=== PATIENT | female | born 1955 | race Caucasian/White ===

== ENCOUNTER 2017-10-24 09:28 | Emergency (ER) | payer OTHER ==
[~2017-10-24] VITALS: Ht 165.1 cm; Wt 81.6 kg
[2017-10-24] MEDS ORDERED: ATORVASTATIN CA10 M1 PO (09:36)
[2017-10-24] MEDS ORDERED: SYNTHROID75 MCG PO (09:36)
[2017-10-24] MEDS ORDERED: TRAMADOL HCL50 M1 PO (09:37)
[2017-10-24] MEDS ORDERED: TRAMADOL-ACETA1 EACH PO (09:37)
[2017-10-24] MEDS ORDERED: TEMAZEPAM30 M1 PO (09:37)
[2017-10-24] MEDS ORDERED: PANTOPRAZOLE SO40 M1 PO (09:38)
[2017-10-24] MEDS ORDERED: DICLOFENAC SODI75 M2 PO (09:38)
--- NOTE | 2017-10-24 10:12 | ED GI/GU/ABDOMINAL COMPLAINT ---
History of Present Illness General Chief Complaint: Nausea, Vomiting, Diarrhea Stated Complaint: DIARRHEA Source: patient, family Exam Limitations: no limitations Vital Signs & Intake/Output Vital Signs & Intake/Output Vital Signs Date Time Temp Pulse Resp B/P B/P Pulse O2 O2 Flow FiO2 Mean Ox Delivery Rate 10/24 1139 97.8 63 15 129/61 100 Room Air Room Air 10/24 1044 Room Air Room Air 10/24 0931 98.4 73 18 131/77 98 Room Air Allergies Coded Allergies: Iodinated Contrast- Oral and IV Dye (VOMITING 10/24/17) Reconcile Medications Atorvastatin Calcium 10 MG TABLET 1 TAB PO DAILY CHOLESTEROL (Reported) Ciprofloxacin HCl (Cipro) 500 MG TABLET 1 TAB PO BID DIARRHEA Diclofenac Sodium 75 MG TABLET.DR 1 TAB PO BID PAIN (Reported) Levothyroxine Sodium (Synthroid) 75 MCG TABLET 1 TAB PO DAILY THYROID ( Reported) Metronidazole (Flagyl) 500 MG TABLET 1 TAB PO TID DIARRHEA Pantoprazole Sodium 40 MG TABLET.DR 1 TAB PO DAILY GI (Reported) Temazepam 30 MG CAPSULE 1 CAP PO QPM SLEEP (Reported) Tramadol HCl 50 MG TABLET 1 TAB PO BIDP PRN PAIN (Reported) Tramadol HCl/Acetaminophen (Tramadol-Acetaminophn 37.5-325) 37.5 MG-325 MG TABLET 1 TAB PO BID PRN PAIN (Reported) Triage Note: 62 YO FEMALE TO TRIAGE C/O +D SINCE FRIDAY. DENIES ABD PAIN. STATES HER DOG WAS RECENTLY SICK AND SHE ISNT SURE IF SHE CAUGHT SOMETHING. PT ARRIVES WITH STOOL SAMPLE FROM HOME. Triage Nurses Notes Reviewed? yes ? N Is pt currently ? No Onset: Evening Duration: day(s): Timing: multiple episodes today Quality/Severity: cramping, mild Location: generalized abdomen Radiation: no radiation Associated Symptoms: fever/chills (SUBJECTIVE) HPI: 61-year-old female with a history of gastric bypass surgery presenting with a few day history of diarrhea. She denies any hematochezia. Notes that her dog has recently been seen by a vet for diarrhea as well and was put on antibiotics for noted infection. She notably has not been drinking much. Has tried Imodium as well as electrolyte drinks without any relief. Denies any chest pain, dysuria, flank tenderness, or sob. (Mike LOVE,Yaakov) Past History Travel History Traveled to [place] past 21 day No Medical History Any Pertinent Medical History? see below for history (gastric bypass) Neurological: NONE EENT: NONE Cardiovascular: hyperlipidemia Respiratory: NONE Gastrointestinal: NONE Hepatic: NONE Renal: NONE Musculoskeletal: back pain Psychiatric: NONE Endocrine: hypothyroidism Blood Disorders: NONE Cancer(s): NONE PLAY READER/Reproductive: NONE Surgical History Surgical History: gastric bypass Psychosocial History What is your primary language Malagasy Tobacco Use: Never used Family History Hx Contributory? No (Yaakov Ashby) Review of Systems Review of Systems Constitutional: Reports: see HPI. Comments Review of systems: See HPI, All other systems negative. Constitutional,no weight loss HEENT: no sore throat no congestion, no ear pain Cardiovascular: No chest pain , no palpitation Skin: no rashes Respiratory: No dyspnea GI: no vomiting, diarrhea, mild nausea : No dysuria No hematuria, no frequency Muscle skeletal: No joint pain, no neck pain, Neurologic: , no headache Psych: No stress no depression,. Heme/endocrine: No bruising no bleeding Immunology: No lymphadenopathy (Yaakov Ashby) Physical Exam Physical Exam General Appearance: well developed/nourished, no apparent distress Head: atraumatic, normal appearance Respiratory: normal breath sounds, chest non-tender, no respiratory distress Cardiovascular: regular rate/rhythm Gastrointestinal: normal bowel sounds, soft, non-tender Neurologic/Psych: awake, alert, oriented x 3 Comments: Well-developed well-nourished person in no acute distress HEENT: Normal EENT exam; PERRL, EOMI. HEAD is atraumatic. moist mucous membranes. Neck: Supple, normal range of motion Back: Nontender, no CVA tenderness. Full range of motion Cardiovascular: Regular rate and rhythms no murmurs Respiratory: No respiratory distress. Patient speaking in full complete sentences. Breath sounds clear to auscultation bilaterally: NO W/R/R Abdomen: Soft, nontender nondistended, no appreciable organomegaly. Normal bowel sounds. No rebound/guarding, No appreciable enlargement of the abdominal aorta, No ascites. Extremity: No edema, full range of motion of extremities Neuro: Alert oriented x3, motor sensory normal,There were no obvious focal neurologic abnormalities. Skin: No appreciable rash on exposed skin, skin is warm and dry. Psych: Mood and affect is normal, memory and judgment is normal. Core Measures ACS in differential dx? No Sepsis Present: No Sepsis Focused Exam Completed? No (Mike LOVE,Yaakov) Progress Differential Diagnosis: diverticulitis, colitis, gastroenteritis Plan of Care: Orders Procedure Date/time Status CULTURE,STOOL 10/24 1000 Active C.DIFFICILE 10/24 1000 Active LIPASE 10/24 1000 Complete COMPREHENSIVE METABOLIC PANEL 10/24 1000 Complete CBC WITHOUT DIFFERENTIAL 10/24 1000 Complete AMYLASE 10/24 1000 Complete Laboratory Tests 10/24/17 1018: Anion Gap 8, Estimated GFR > 60, BUN/Creatinine Ratio 13.8, Glucose 96, Calcium 8.7, Total Bilirubin 0.4, AST 18, ALT 26, Alkaline Phosphatase 65, Total Protein 6.3, Albumin 3.7, Globulin 2.6, Albumin/Globulin Ratio 1.4, Amylase 56, Lipase 50, CBC w Diff MAN DIFF ORDERED, RBC 3.90 L, MCV 78.4 L, MCH 25.3 L, MCHC 32.3 L, RDW 16.0 H, MPV 9.8, Gran % 65.7, Lymphocytes % 25.9, Monocytes % 7.2, Eosinophils % 1.2, Basophils % 0, Absolute Granulocytes 5.0, Absolute Lymphocytes 2.0, Absolute Monocytes 0.6, Absolute Eosinophils 0.1, Absolute Basophils 0, Platelet Estimate VERIFIED BY SMEAR, Anisocytosis 1+ Microbiology 10/24 1018 STOOL: Clostridium difficile Toxin A & B - RECD 10/24 1018 STOOL: Stool Culture - RECD 10/24/2017 10:26:25 AM patient seen and evaluated IV fluids CAT scan and labs ordered. nita has not had any episodes of diarrhea here in the dept, i d/w with her all of her labs pending ct iv fluids running I discussed with the patient at length all of their results. I had an extensive conversation regarding need for close follow up with their primary care physician this week as well as return precautions. I answered all of their questions, they feel comfortable with the plan and follow-up care. I discussed with the patient/family the medications that they will receive. I gave them signs and symptoms that could indicate an adverse reaction. I have advised them to limit their activities until they can see how they respond to the medication. Diagnostic Imaging: Viewed by Me: CT Scan. Discussed w/RAD: CT Scan. Radiology Impression: PATIENT: NITA NAVAS PRESENT AGE: 62 PATIENT ACCOUNT NO: [id number] : 54 LOCATION: [facility] ORDERING PHYSICIAN: Yaakov LOVE SERVICE DATE: 10/24/17 EXAM TYPE: CAT - CT ABD & PELVIS W/O IV CONTRAS EXAMINATION: CT ABDOMEN AND PELVIS WITHOUT CONTRAST CLINICAL INFORMATION: Diarrhea COMPARISON: None TECHNIQUE: Multidetector volumetric imaging was performed from the superior aspect of the liver through the pubic symphysis. Sagittal and coronal reformatted images were obtained on the technologist's workstation. DLP: 369 mGy-cm FINDINGS: LUNG BASES: The visualized lung bases are unremarkable. LIVER, GALLBLADDER, AND BILIARY TREE: The liver is normal in size, shape, and attenuation. No focal hepatic lesion or biliary ductal dilatation is present. The gallbladder is unremarkable with no evidence of radiopaque gallstones, gallbladder wall thickening, or obvious pericholecystic inflammatory changes. PANCREAS: Unremarkable. SPLEEN: Unremarkable. ADRENAL GLANDS: Unremarkable. KIDNEYS AND URETERS: The kidneys are normal in size, shape, and attenuation. No hydronephrosis, hydroureter, or calculi seen. No perinephric stranding. BLADDER: Unremarkable. GASTROINTESTINAL TRACT: Postsurgical changes related to gastric bypass surgery. No focal inflammatory process or obstruction. Normal appendix. ABDOMINAL WALL: No significant hernia is appreciated. LYMPH NODES: Normal. VASCULAR: Unremarkable. PELVIC VISCERA: Unremarkable. OSSEOUS STRUCTURES: Unremarkable. IMPRESSION: No focal inflammatory process or obstruction. Normal appendix. DICTATED BY: Gustavo Kwong MD DATE/TIME DICTATED:10/24/171053 SANDER WOODEN PENCILS: JUANCARLOS DATE/TIME TRANSCRIBED:10/24/171053 CONFIDENTIAL, DO NOT COPY WITHOUT APPROPRIATE AUTHORIZATION. <Electronically signed in Other Vendor System> SIGNED BY: Gustavo Kwong MD 10/24/17 1105 Initial ED EKG: none (Mike LOVE,Yaakov) Departure Departure Time of Disposition: 1125 Disposition: HOME OR SELF CARE Condition: Stable Clinical Impression Primary Impression: Diarrhea Referrals: Vladimir Hinojosa MD (PCP/Family) Additional Instructions: CIPRO FLAGYL DIRECTED. DRINK PLENTY OF FLUIDS TO STAY HYDRATED. FOLLOW UP WITH YOUR PMD, RETURN WITH ANY CONCERNS Departure Forms: Customer Survey General Discharge Information Prescriptions: Current Visit Scripts Ciprofloxacin HCl (Cipro) 1 TAB PO BID #14 TAB Metronidazole (Flagyl) 1 TAB PO TID #21 TAB (Mike LOVE,Yaakov) PA/AUTOMOTIVE PRODUCTION WORKER Co-Sign Statement Statement: ED Attending supervision documentation- [] I saw and evaluated the patient. I have also reviewed all the pertinent lab results and diagnostic results. I agree with the findings and the plan of care as documented in the PA's/AUTOMOTIVE PRODUCTION WORKER's documentation. [X] I have reviewed the ED Record and agree with the PA's/AUTOMOTIVE PRODUCTION WORKER's documentation. [] Additions or exceptions (if any) to the PAs/AUTOMOTIVE PRODUCTION WORKER's note and plan are summarized below: [] (Juan BEY,Jah Stahl)
[2017-10-24 10:32] LABS: ABSOLUTE BASOPHIL COUNT 0 /CUMM (0.0-0.2); ABSOLUTE EOSINOPHIL COUNT 0.1 /CUMM (0.0-0.7); ABSOLUTE MONOCYTE COUNT 0.6 /CUMM (0.10-0.60); BASOPHIL % 0 % (0.0-2.0); EOSINOPHIL % 1.2 % (0-5); GRANULOCYTE % 65.7 % (42.2-75.2); HEMATOCRIT 30.6 % (37-47); MEAN CORPUSCULAR HGB 25.3 PG (27.0-31.0); MEAN CORPUSCULAR HGB CONC 32.3 G/DL (33.0-37.0); MEAN CORPUSCULAR VOLUME 78.4 FL (81.0-99.0); MEAN PLATELET VOLUME 9.8 FL (7.4-10.4); PLATELET COUNT 215 /CUMM (130-400); WHITE BLOOD CELL COUNT 7.7 /CUMM (4.8-10.8)
--- NOTE | 2017-10-24 11:05 | CT SCAN REPORT ---
EXAMINATION: CT ABDOMEN AND PELVIS WITHOUT CONTRAST CLINICAL INFORMATION: Diarrhea COMPARISON: None TECHNIQUE: Multidetector volumetric imaging was performed from the superior aspect of the liver through the pubic symphysis. Sagittal and coronal reformatted images were obtained on the technologist's workstation. DLP: 369 mGy-cm FINDINGS: LUNG BASES: The visualized lung bases are unremarkable. LIVER, GALLBLADDER, AND BILIARY TREE: The liver is normal in size, shape, and attenuation. No focal hepatic lesion or biliary ductal dilatation is present. The gallbladder is unremarkable with no evidence of radiopaque gallstones, gallbladder wall thickening, or obvious pericholecystic inflammatory changes. PANCREAS: Unremarkable. SPLEEN: Unremarkable. ADRENAL GLANDS: Unremarkable. KIDNEYS AND URETERS: The kidneys are normal in size, shape, and attenuation. No hydronephrosis, hydroureter, or calculi seen. No perinephric stranding. BLADDER: Unremarkable. GASTROINTESTINAL TRACT: Postsurgical changes related to gastric bypass surgery. No focal inflammatory process or obstruction. Normal appendix. ABDOMINAL WALL: No significant hernia is appreciated. LYMPH NODES: Normal. VASCULAR: Unremarkable. PELVIC VISCERA: Unremarkable. OSSEOUS STRUCTURES: Unremarkable. IMPRESSION: No focal inflammatory process or obstruction. Normal appendix.
[2017-10-24] MEDS ORDERED: CIPRO500 M1 PO (11:26)
[2017-10-24] MEDS ORDERED: FLAGYL500 MG PO (11:26)
[2017-10-24 11:39] VITALS: BP 129/61
== END 2017-10-24 11:40 ==
LOC: ERH 09:28
PROVIDERS: Physician Assistant Medical
DX: R19.7 Diarrhea, unspecified (principal)
CPT/HCPCS: 74176; 87015; 87045; 87899; 87899-59; 96360